=== PATIENT | female | born 1965 | race Caucasian/White ===

== ENCOUNTER 2017-05-24 20:40 | Emergency (ER) | payer MEDICAID ==
[~2017-05-24] VITALS: Ht 152.4 cm; Wt 78.8 kg
[~2017-05-24 20:40] MED LIST: UNKNOWN INHALER
[2017-05-24 22:33] VITALS: BP 112/62
== END 2017-05-24 22:35 | disposition home or self-care (01) ==
LOC: ED 22:12
DX: R06.00 Dyspnea, unspecified (principal); F17.200 Nicotine dependence, unspecified, uncomplicated; J44.9 Chronic obstructive pulmonary disease, unspecified; E03.9 Hypothyroidism, unspecified; G89.29 Other chronic pain; M54.9 Dorsalgia, unspecified; G43.909 Migraine, unspecified, not intractable, without status migrainosus; Z87.891 Personal history of nicotine dependence
CPT/HCPCS: 71010; 93005; 99284

== ENCOUNTER 2018-04-13 09:13 | Emergency (ER) | payer MEDICAID ==
[~2018-04-13] VITALS: Ht 152.4 cm; Wt 73.0 kg
[2018-04-13 09:17] VITALS: BP 109/68
[2018-04-13] MEDS ORDERED: CIPROFLOXACIN DEXAMETHASONE EAR SUSP 7.5ML LEFT EAR SCH (10:00)
[2018-04-13] MEDS ORDERED: HYDROcodone/APAP 5/325 TABLET ONE (10:20)
[2018-04-13] MEDS ORDERED: HYDROcodone/APAP 5/325 TABLET PO ONE (10:30)
== END 2018-04-13 10:46 | disposition home or self-care (01) ==
LOC: ED 10:39
DX: H60.12 Cellulitis of left external ear (principal); H10.022 Other mucopurulent conjunctivitis, left eye; G89.29 Other chronic pain; E03.9 Hypothyroidism, unspecified; J44.9 Chronic obstructive pulmonary disease, unspecified; F17.210 Nicotine dependence, cigarettes, uncomplicated
CPT/HCPCS: 99283

== ENCOUNTER 2018-04-15 10:39 | Emergency (ER) | payer MEDICAID ==
[~2018-04-15] VITALS: Ht 152.4 cm; Wt 71.0 kg
[2018-04-15 10:54] VITALS: BP 93/65
== END 2018-04-15 11:20 | disposition home or self-care (01) ==
LOC: ED 11:16
DX: H60.312 Diffuse otitis externa, left ear (principal); H60.12 Cellulitis of left external ear; H10.022 Other mucopurulent conjunctivitis, left eye; G89.29 Other chronic pain; J44.9 Chronic obstructive pulmonary disease, unspecified; E03.9 Hypothyroidism, unspecified; Z90.89 Acquired absence of other organs
CPT/HCPCS: 99283

== ENCOUNTER 2018-04-19 23:25 | Emergency (ER) | payer MEDICAID ==
[~2018-04-19] VITALS: Ht 152.4 cm; Wt 71.0 kg
[2018-04-19 23:27] VITALS: BP 112/74
[2018-04-19] MEDS ORDERED: IBUPROFEN 200 MG TABLET ONE (23:59)
[2018-04-20] MEDS ORDERED: IBUPROFEN 200 MG TABLET PO ONE
== END 2018-04-20 00:10 | disposition home or self-care (01) ==
LOC: ED 23:39
DX: H66.002 Acute suppurative otitis media without spontaneous rupture of ear drum, left ear (principal); G89.29 Other chronic pain; G43.909 Migraine, unspecified, not intractable, without status migrainosus; E03.9 Hypothyroidism, unspecified; J44.9 Chronic obstructive pulmonary disease, unspecified; Z87.891 Personal history of nicotine dependence
CPT/HCPCS: 99283

== ENCOUNTER 2019-02-06 08:50 | Emergency (ER) | payer MEDICAID ==
[~2019-02-06] VITALS: Ht 152.4 cm; Wt 69.7 kg
[2019-02-06 09:01] VITALS: BP 91/62
[2019-02-06] MEDS ORDERED: METOCLOPRAMIDE 5 MG/ML, 2ML IVPush ONE (09:30)
[2019-02-06] MEDS ORDERED: SUMATRIPTAN 6MG/0.5ML SQ ONE ×2 (09:30→09:38)
[2019-02-06] MEDS ORDERED: SODIUM CHLORIDE FLUSH 10ML SYR IVF ONE (09:30)
[2019-02-06] MEDS ORDERED: SODIUM CHLORIDE 0.9% 1,000ML IVBOLUS ONE (09:30)
[2019-02-06] MEDS ORDERED: KETOROLAC 30 MG/1 ML IVPush ONE (09:30)
[2019-02-06] MEDS ORDERED: DIPHENHYDRAMINE 50 MG/ML, 1ML IVPush ONE (09:30)
[2019-02-06] MEDS ORDERED: DIPHENHYDRAMINE 25 MG CAPSULE ONE (09:38)
[2019-02-06] MEDS ORDERED: KETOROLAC 30 MG/1 ML ONE (09:38)
[2019-02-06] MEDS ORDERED: METOCLOPRAMIDE 10MG TABLET ONE (09:38)
[2019-02-06] MEDS ORDERED: HYDR5TAB7 PO (09:54)
[2019-02-06] MEDS ORDERED: CHOL2000 PO (09:54)
[2019-02-06] MEDS ORDERED: LEVO50TA5 PO (09:54)
[2019-02-06] MEDS ORDERED: OMEP20CA14 PO (09:54)
[2019-02-06] MEDS ORDERED: AMIT10TA PO (09:54)
[2019-02-06] MEDS ORDERED: CYCL5TAB PO (09:54)
[2019-02-06] MEDS ORDERED: VENL75TA PO (09:56)
[2019-02-06] MEDS ORDERED: ALBU18HF INH (09:56)
[2019-02-06] MEDS ORDERED: ESCI10TA PO (09:58)
--- NOTE | 2019-02-06 11:18 | NUR ---
Patient/Caregiver given discharge instructions and they have confirmed that they understand the instructions. Patient ambulatory with steady gait.
== END 2019-02-06 11:19 | disposition home or self-care (01) ==
LOC: ED 10:27
DX: G43.011 Migraine without aura, intractable, with status migrainosus (principal); M62.838 Other muscle spasm; G89.29 Other chronic pain; E03.9 Hypothyroidism, unspecified; J44.9 Chronic obstructive pulmonary disease, unspecified; Z88.6 Allergy status to analgesic agent
CPT/HCPCS: 96372; 96374; 96375; 99283; J1200; J1885; J2765; J3030

== ENCOUNTER 2020-04-16 10:03 | Inpatient (IN) | payer MEDICAID ==
[~2020-04-16] VITALS: Ht 152.4 cm; Wt 85.5 kg
[~2020-04-16 10:03] MED LIST changes: +ALBU18HF INH; +AMIT10TA PO; +CHOL2000 PO; +CYCL5TAB PO; +ESCI10TA PO; +HYDR5TAB13 PO; +LEVO50TA5 PO; +OMEP20CA20 PO; +VENL75TA PO
[2020-04-16] MEDS ORDERED: ONDANSETRON 2MG/ML, 2ML IVPush ONE (10:30)
[2020-04-16] MEDS ORDERED: SODIUM CHLORIDE FLUSH 10ML SYR IVF ONE (10:30)
[2020-04-16] MEDS ORDERED: SODIUM CHLORIDE 0.9% 1,000ML IVBOLUS ONE (10:30)
[2020-04-16] MEDS ORDERED: ACETAMINOPHEN 500 MG TABLET PO ONE (10:30)
[2020-04-16] MEDS ORDERED: HYDROmorphone 1 MG/ML, 1ML INJ IVPush PRN (10:30)
[2020-04-16] MEDS ORDERED: ACETAMINOPHEN 500 MG TABLET ONE (10:49)
--- NOTE | 2020-04-16 10:50 | NUR ---
SEE TRIAGE. ON ARRIVAL, PT PLACED ON ALL ROOM MONITORING. ATTEMPT TO GET IV, UNSUCCESSFUL X 1 ATTEMPT. PT WITH POOR VENOUS ACCESS AND STATES "THEY ALWAYS HAVE A DIFFICULT TIME". TONIA ANDERSON TO ATTEMPT US GUIDED IV WHEN AVAIL. LAB IN TO DRAW. CALL LIGHT WITHIN REACH.
[2020-04-16 11:25] LABS: BASOPHILS # (AUTO) 0.05 x10^3/uL (0-0.1); BASOPHILS % (AUTO) 0 % (0-1); EOSINOPHILS # (AUTO) 0.06 x10^3/uL (0-0.4); EOSINOPHILS % (AUTO) 0 % (1-7); LYMPHOCYTES # (AUTO) 2.12 x10^3/uL (1-3.4); LYMPHOCYTES % (AUTO) 13 % (22-44); MD NO; MEAN CORPUSCULAR HEMOGLOBIN 32.7 pg (27.0-34.8); MEAN CORPUSCULAR HGB CONC 33.8 g/dL (32.4-35.8); MEAN CORPUSCULAR VOLUME 96.8 fL (80-100); MEAN PLATELET VOLUME 7.2 fL (7.4-10.4); MONOCYTES # (AUTO) 1.17 x10^3/uL (0.2-0.8); MONOCYTES % (AUTO) 7 % (2-9); NEUTROPHILS # (AUTO) 12.64 x10^3/uL (1.8-6.8); NEUTROPHILS % (AUTO) 79 % (42-75); PLATELET COUNT 290 x10^3/uL (130-400); RED BLOOD COUNT 3.85 x10^6/uL (3.82-5.3); RED CELL DISTRIBUTION WIDTH 12.8 % (9.6-15.2)
[2020-04-16 11:41] LABS: CALCIUM 8.7 mg/dL (8.5-10.1); CHLORIDE 101 mmol/L (98-107)
--- NOTE | 2020-04-16 11:43 | NUR ---
COVID TEST COLLECTED/WALKED TO LAB. TWO MORE ATTEMPTS FOR PIV. UNABLE TO OBTAIN. APPLICATION HELPER AND ERP NOTIFIED OF POOR VENOUS ACCESS AND NEED FOR US GUIDED IV PLACEMENT. PT REFUSING EXTERNAL JUGULAR PLACEMENT. CALL LIGHT WITHIN REACH, PT SLEEPING INTERMITTENTLY.
[2020-04-16 11:51] LABS: ALANINE AMINOTRANSFERASE 48 U/L (12-78); ALBUMIN 3.3 g/dL (3.4-5.0); ALKALINE PHOSPHATASE 149 U/L (45-117); ANION GAP 9 mmol/L (5-15); BILIRUBIN,TOTAL 1.2 mg/dL (0.2-1.0); CREATININE 1.24 mg/dL (0.55-1.02); TOTAL PROTEIN 7.7 g/dL (6.4-8.2)
--- NOTE | 2020-04-16 12:12 | NUR ---
LAB IN TO DRAW 2ND BC. ERP CX REGULAR COVID TEST AND COMPLETED RAPID COVID TEST/WALKED TO LAB.
--- NOTE | 2020-04-16 12:35 | NUR ---
BILL RN IN TO ATTEMPT US IV.
--- NOTE | 2020-04-16 12:52 | NUR ---
IV ESTABLISHED, NS BOLUS INFUSING. VS UPDATED IN COMPUTER. PT SLEEPING/SNORING, AROUSABLE TO VOICE BUT VERY DROWSY. PULSE OX READING 88-89% WHILE ASLEEP, OXYGEN PLACED AT 2LITERS VIA NC. NO PAIN MEDICATION GIVEN AT THIS TIME, NO N/V SINCE ARRIVAL TO ED. CALL LIGHT WITHIN REACH.
--- NOTE | 2020-04-16 14:09 | NUR ---
PT ASSISTED UP TO BSC. URINE COLLECTED/SENT TO LAB. CALL LIGHT WITHIN REACH.
--- NOTE | 2020-04-16 14:19 | NUR ---
ORDER FOR REGULAR COVID ENTERED BY ERP. CALL TO LAB TO VERIFY SPECIMEN IN LAB AND BEING SENT OUT FOR PROCESSING. AWAITING ADMISSION.
[2020-04-16 14:22] LABS: MICROSCOPIC INDICATED
[2020-04-16] MEDS ORDERED: ALBUTEROL HFA 90 MCG/SPRAY INH PRN (15:30)
[2020-04-16] MEDS ORDERED: ONDANSETRON 2MG/ML, 2ML IVPush PRN (15:30)
[2020-04-16] MEDS ORDERED: ASA/APAP/ CAFFEINE TABLET PO PRN (15:30)
[2020-04-16] MEDS ORDERED: hydrALAzine 20 MG/ML, 1ML IVPush PRN (15:30)
[2020-04-16] MEDS ORDERED: LABETALOL 5MG/ML, 20ML IVPush PRN (15:30)
[2020-04-16 16:21] VITALS: BP 96/61
[2020-04-16] MEDS ORDERED: CEFTRIAXONE PMX 1GM/50ML 50 ML IV ONE (16:30)
[2020-04-16] MEDS: HYDROCORTISONE 5 MG TABLET PO SCH ×2 (16:39→20:09)
[2020-04-16] MEDS: D5%-0.45% NACL 1,000 ML IV SCH (16:39)
[2020-04-16 19:54] VITALS: BP 91/61
[2020-04-16] MEDS ORDERED: ACETAMINOPHEN 325 MG TABLET ONE (20:08)
[2020-04-16] MEDS ORDERED: ACETAMINOPHEN 325 MG TABLET PO PRN (20:30)
[2020-04-16] MEDS ORDERED: AMITRIPTYLINE 10 MG TABLET PO SCH (21:00)
[2020-04-16] MEDS ORDERED: BUTALB/APAP/CAFFEINE 50MG/325MG/40MG PO PRN (23:00)
[2020-04-17] MEDS: D5%-0.45% NACL 1,000 ML IV SCH ×2 (00:21→08:19)
[2020-04-17 00:26] VITALS: BP 92/60
[2020-04-17] MEDS ORDERED: PROMETHAZINE 25 MG/ML, 1ML IM ONE (02:00)
[2020-04-17] MEDS ORDERED: LEVOTHYROXINE 50 MCG TABLET PO SCH (06:00)
[2020-04-17 06:28] VITALS: BP 94/58
[2020-04-17] MEDS: HYDROCORTISONE 5 MG TABLET PO SCH (08:19)
[2020-04-17] MEDS ORDERED: ESCITALOPRAM 10MG TABLET PO SCH (09:00)
[2020-04-17] MEDS ORDERED: VENLAFAXINE 75MG TABLET PO SCH (09:00)
[2020-04-17] MEDS ORDERED: CHOLECALCIFEROL 1,000 UNIT TABLET PO SCH (09:00)
[2020-04-17] MEDS ORDERED: CYCLOBENZAPRINE 10 MG TABLET PO SCH (09:00)
[2020-04-17] MEDS ORDERED: OMEPRAZOLE 20 MG CAPSULE.DR PO SCH (09:00)
[2020-04-17 11:20] VITALS: BP 99/64
[2020-04-17] MEDS ORDERED: CEFTRIAXONE PMX 1GM/50ML 50 ML IV SCH (12:00)
[2020-04-17 12:23] VITALS: BP 100/60
== END 2020-04-17 12:56 | disposition left against medical advice (07) | DRG 103 ==
LOC: ED 11:37 → 4EST 15:06 → INTOOBSV 15:06 → 4EST 18:57 → OBSVTOIN 04-17 11:10 → 4EST 04-17 11:25
PROVIDERS: ADMIT Family Medicine; ATTEND Family Medicine
DX: G43.909 Migraine, unspecified, not intractable, without status migrainosus (principal); E27.40 Unspecified adrenocortical insufficiency; N39.0 Urinary tract infection, site not specified; Z20.828 Contact with and (suspected) exposure to other viral communicable diseases; Z53.29 Procedure and treatment not carried out because of patient's decision for other reasons; E03.9 Hypothyroidism, unspecified; G47.00 Insomnia, unspecified; F32.9 Major depressive disorder, single episode, unspecified; J44.9 Chronic obstructive pulmonary disease, unspecified; K21.9 Gastro-esophageal reflux disease without esophagitis; Z87.891 Personal history of nicotine dependence; Z91.19 Patient's noncompliance with other medical treatment and regimen; Z88.6 Allergy status to analgesic agent
CPT/HCPCS: 36415; 70450; 71045; 80053; 81001; 83605; 85025; 87040; 87077; 87086; 87186; 87635; G0378; J0696; J2405; J2550; J7030

== ENCOUNTER 2021-04-13 01:57 | Emergency (ER) | payer MEDICAID ==
[~2021-04-13] VITALS: Ht 152.4 cm; Wt 83.0 kg
[~2021-04-13 01:57] MED LIST changes: -ESCI10TA PO; +ESCI10TA97 PO
[2021-04-13] MEDS ORDERED: LIDOCAINE-MPF 1%, 5ML INFIL ONE (02:30)
[2021-04-13 02:31] VITALS: BP 114/76
[2021-04-13] MEDS ORDERED: LIDOCAINE-MPF 1%, 5ML ONE (02:39)
== END 2021-04-13 03:01 | disposition home or self-care (01) ==
LOC: ED 02:55
DX: H60.501 Unspecified acute noninfective otitis externa, right ear (principal); J44.9 Chronic obstructive pulmonary disease, unspecified; E03.9 Hypothyroidism, unspecified; G43.909 Migraine, unspecified, not intractable, without status migrainosus
CPT/HCPCS: 99283

== ENCOUNTER 2021-04-14 11:35 | Emergency (ER) | payer MEDICAID ==
[~2021-04-14] VITALS: Ht 152.4 cm; Wt 83.0 kg
[2021-04-14 11:56] VITALS: BP 111/84
== END 2021-04-14 12:29 | disposition home or self-care (01) ==
LOC: ED 12:07
DX: H60.501 Unspecified acute noninfective otitis externa, right ear (principal); J44.9 Chronic obstructive pulmonary disease, unspecified; E03.9 Hypothyroidism, unspecified; G43.909 Migraine, unspecified, not intractable, without status migrainosus
CPT/HCPCS: 99281